=== PATIENT | male | born 1980 | race Caucasian/White ===

== ENCOUNTER 2017-04-14 19:41 | Emergency (ER) | payer OTHER ==
[~2017-04-14] VITALS: Ht 167.6 cm; Wt 89.0 kg
[~2017-04-14 19:41] MED LIST: ATOR10TA65 PO; HYD25 PO; MECL25TA2 PO; METO-429 PO; OMEG-135 PO
[2017-04-14 19:55] VITALS: Ht 167.6 cm; Wt 89.0 kg
[2017-04-14] MEDS ORDERED: LORAZEPAM 1 MG TAB PO ONE (22:00)
--- NOTE | 2017-04-14 22:12 | ERD ---
ER Documentation Chief Complaint Date/Time DATE: 04/14/17 TIME: 22:02 Chief Complaint c/o dry mouth x 1 day, feels that he is dehydrated. HPI This is a 36-year-old male with a known history of hypertension and spina bifida. The patient ambulates with canes due to the spina bifida. He indicates that for the past 24 hours he has felt as though his mouth was dry. He has been drinking soda but indicates he has not consumed any water. He has been making urine. He denies any fever shaking or chills. He denies any diarrhea or constipation. He has not experienced any emesis. He denies any back pain. He has had no chest pain or pressure. He has no shortness of breath at rest or exertion. ROS All systems reviewed and are negative except as per history of present illness. Medications Home Meds Active Scripts Meclizine Hcl* (Antivert*) 25 Mg Tablet, 25 MG PO Q6H Y for DIZZINESS, #14 TAB Prov:LEA GREENWOOD MD 12/18/15 Reported Medications Fish Oil* (Fish Oil*) 1,000 Mg Cap, 1000 MG PO BID, CAP 12/06/15 Atorvastatin Calcium (Atorvastatin Calcium) 10 Mg Tablet, 10 MG PO QHS, #30 TAB 12/06/15 Metoprolol Tartrate* (Lopressor*) 50 Mg Tab, 50 MG PO DAILY, #60 TAB 12/06/15 Hydrochlorothiazide* (Hydrochlorothiazide*) 25 Mg Tab, 25 MG PO DAILY, #30 TAB 12/06/15 Allergies Allergies: Coded Allergies: No Known Drug Allergies (Verified Allergy, Unknown, 12/18/15) PMhx/Soc History of Surgery: Yes (BACK ) Anesthesia Reaction: No Hx Neurological Disorder: Yes (SPINA BIFIDA) Hx Respiratory Disorders: No Hx Psychiatric Problems: No Hx Miscellaneous Medical Probl: No Hx Alcohol Use: No Hx Substance Use: No Hx Tobacco Use: No Physical Exam Vitals Vital Signs Date Time Temp Pulse Resp B/P Pulse Ox O2 Delivery O2 Flow Rate FiO2 04/14/17 19:55 98.9 68 18 154/98 98 Physical Exam Constitutional:Well-developed. Well-nourished. HEENT:Normocephalic. Atraumatic.Pupils were equal round reactive to light. Dry mucous membranes.No tonsillar exudates. Neck: No nuchal rigidity. No lymphadenopathy. No posterior cervical spine tenderness or step-offs. Respiratory: Not using accessory muscles of respiration.Lungs were clear to auscultation bilaterally. No rhonchi. No rales. No wheezing. Cardiovascular: Regular rate regular rhythm.No murmurs. No rubs were appreciated.S1, S2 normal. Distal pulses are palpable 2+ bilaterally. GI: Abdomen was soft. Nontender. Non Distended. No pulsatile abdominal masses or bruits. No rebound. No guarding. Bowel sounds were present and normal. Muscle skeletal: Patient has spina bifida and ambulates with bilateral canes fitted for him. Skin: No petechia, no purpura. No lesions on the palms or the soles of the feet. No maculopapular rash. NEURO: Patient was alert, awake, orientated x3.No facial droop. Gait observed and ambulates with canes.Speech had regular rate and rhythm. No focal neurological deficits. Results 24 hrs Current Medications Medications (Trade) Dose Ordered Sig/Padmaja Route PRN Reason Start Time Stop Time Status Last Admin Dose Admin Lorazepam (Ativan) 1 mg ONCE ONCE PO 04/14/17 22:00 04/14/17 22:01 DC Procedures/MDM This is a very pleasant 36-year-old male. The patient stated he felt clinically dehydrated. He did have dry mucous membranes but good cap refill. The patient was able to tolerate oral intake. He was nonseptic in appearance. He appeared very anxious and stated he he has no history of anxiety disorder. He was given 1 mg of Ativan p.o. I indicated to the patient that I did not feel he required IV fluids at this time as he was able to tolerate oral intake and I did instruct the patient to increase his water intake and decrease his soda intake. The patient was discharged home in fair condition. They were instructed to return to the emergency department at any time if there was any worsening of their condition. The patient stated they would follow up with their PCP in the next 24-48 hours to initiate a suitable medication regimen under the care of their PCP as well as to allow their PCP to monitor any drug reactions. The patient was discharged home with prescriptions after they gave informed consent to the new medication. They were also fully informed by myself on the adverse effects and adverse drug interactions in order to provide adequate safeguards to prevent possible adverse reactions to medications. Departure Diagnosis: Primary Impression: Anxiety Additional Impression: Mild dehydration Condition: Fair Patient Instructions: Dehydration (6Y-Adult) Referrals: HYUN CHILDERS DO (PCP) KATELYN DURAN Apr 14, 2017 22:12
== END 2017-04-14 22:17 | disposition home or self-care (01) ==
LOC: FTE 19:41
DX: F41.9 Anxiety disorder, unspecified (principal)
CPT/HCPCS: Z7502; Z7610; 99283

== ENCOUNTER 2019-06-08 02:56 | Emergency (ER) | payer OTHER ==
[~2019-06-08] VITALS: Ht 167.6 cm; Wt 87.2 kg
[~2019-06-08 02:56] MED LIST changes: +CEPH-443 PO; -HYD25 PO; +HYDR25TA6 PO; +PHEN-538 PO
[2019-06-08 02:59] VITALS: Ht 167.6 cm; Wt 87.2 kg
[2019-06-08] MEDS ORDERED: CEFTRIAXONE 500 MG INJ IM ONE (05:00)
[2019-06-08] MEDS ORDERED: PHENAZOPYRIDINE 100 MG TAB PO ONE (05:00)
[2019-06-08 05:05] VITALS: BP 138/93; PULSE 66; RESP 20
== END 2019-06-08 05:01 | disposition home or self-care (01) ==
LOC: FTE 02:56
DX: N39.0 Urinary tract infection, site not specified (principal); I10 Essential (primary) hypertension
CPT/HCPCS: 81001; 87086; 96372; J0696; Z7502; Z7610